=== PATIENT | female | born 1985 | race Caucasian/White ===

== ENCOUNTER 2019-05-02 19:21 | Emergency (ER) | payer SELFPAY ==
[2019-05-02] MEDS: ONDANSETRON HCL/PF 4 MG/ 2ML VIAL IVP ONE (19:33)
[2019-05-02] MEDS: 0.9 % SODIUM CHLORIDE 1,000 ML IV ONE ×3 (19:37→21:42)
[2019-05-02 19:46] LABS: BASOPHILS % 0.5 % (0.0-1.5); NEUTROPHILS # 11.7 # k/uL (1.4-7.7)
[2019-05-02 19:52] LABS: eGFR (Non-African) > 60
--- NOTE | 2019-05-02 20:51 | Diagnostic Imaging Report ---
PATIENT MR#: [id number] PATIENT PATIENT NAME: BANDAR CHILDS DATE OF : 1985 REFERRING PHYSICIAN: Alcon Velarde EXAM DATE: 05/02/2019 ACCESSION NUMBER: [id number] EXAM DESCRIPTION: ABD SERIES PA CHEST Examination: Obstruction series History: Abdominal discomfort Findings: 3 views obtained of the chest and abdomen. No abnormal dilation of the large or small bowel . Air and stool throughout the large bowel. No suspicious calcification projecting over the renal fossa or the lower pelvic region. Osseous structures are appropriate for age. No focal consolidation or blunting of the costophrenic ma rgins. Impression: No ileus or obstruction. No acute cardiopulmonary process. No suspicious calcifications by plain film sensitivity. Read by: Dr. Dexter Smith Transcribed by: Transcribed Date: Electronically signed by: Dr. Dexter Smith Date signed: 05/02/2019 8:50:47 PM
[2019-05-02] MEDS: LORazepam 2 MG/ML VIAL IV ONE (21:00)
[2019-05-02] MEDS: ONDANSETRON HCL 4 MG TAB.RAPDIS PO ONE (21:40)
[2019-05-02] MEDS: LORazepam 2 MG/ML VIAL ONE (21:42)
[2019-05-02] MEDS: 0.9 % SODIUM CHLORIDE 1,000 ML IV SCH ×2 (21:43→21:44)
[2019-05-02] MEDS: ONDANSETRON HCL/PF 4 MG/ 2ML VIAL IM ONE (21:45)
--- NOTE | 2019-05-02 22:06 | ED Physician Documentation ---
General Adult - HISTORIAN Historian: patient - HPI Stated Complaint: nausea and vomiting Chief Complaint: Nausea,Vomiting,Diarrhea Additional Information: 2 day history of nausea and vomiting, has been dry heaving some. No diarrhea noted. Patient has had some fever, ? mild chills. No one else at home is sick. Having some lower abd pain, cramping, sharp in nature. Patient denies that she is (has had BTL) Onset: days ago (2 days) Timing: still present Severity: moderate Modifying Factors: none Context: no precipitating factors noted Location: diffuse Further Comments: no - ROS CONST: fever, chills CVS/RESP: none GI/: abdominal pain (suprapubic area), problems urinating (always has some problems, seems to be at baseline), vomiting, nausea. denies: diarrhea, black stools MS/SKIN/LYMPH: none NEURO/PSYCH: denies: headache, fainting, dizziness - PAST HX Past History: none Other History: other (anxiety) Surgeries/Procedures: (x2), other (TKR right) Immunizations: denies: influenza Allergies/Adverse Reactions: Allergies Allergy/AdvReac Type Severity Reaction Status Date / Time codeine Allergy Mild Verified 05/02/19 20:06 Home Medications: Ambulatory Orders Medication Instructions Recorded Ciprofloxacin HCl [Cipro] 250 mg PO BID #10 tablet 05/02/19 Ondansetron HCl Rapdis [Zofran Odt] 4 mg PO Q8 #20 tab 05/02/19 - SOCIAL HX Smoking History: less than 1 pack/day Alcohol Use: none Drug Use: none - FAMILY HX Family History: Yes - REVIEWED ASSESSMENTS Nursing Assessment Reviewed: Yes Vitals Reviewed: Yes ED Results Lab/Radiology - Lab Results Lab Results: Lab Results 05/02/19 05/02/19 19:38 19:37 WBC 13.80 K/ul H K/ul (4.00-12.00) RBC 4.31 M/ul M/ul (3.90-5.20) Hgb 13.3 g/dL g/dL (11.5-16.0) Hct 40.0 % % (34.5-46.5) MCV 93.0 fl fl (80.0-100.0) MCH 30.8 pg pg (28.0-34.0) MCHC 33.2 g/dL g/dL (30.0-36.0) RDW 10.4 % L % (11.3-14.3) Plt Count 234 K/mm3 K/mm3 (130-400) Neut % (Auto) 84.2 % H % (39.0-79.0) Lymph % (Auto) 9.4 % L % (16.0-50.0) Steele % (Auto) 4.9 % % (0.0-11.0) Eos % (Auto) 1.0 % % (0.0-6.8) Baso % (Auto) 0.5 % % (0.0-1.5) Neut # (Auto) 11.7 # k/uL H # k/uL (1.4-7.7) Lymph # (Auto) 1.3 # k/uL # k/uL (0.6-4.0) Steele # (Auto) 0.7 # k/uL # k/uL (0.0-0.9) Eos # (Auto) 0.1 # k/uL # k/uL (0.0-0.6) Baso # (Auto) 0.1 # k/uL # k/uL (0.0-0.5) Sodium 136 mmol/L L mmol/L (137-145) Potassium 3.8 mmol/L mmol/L (3.5-5.1) Chloride 100 mmol/L mmol/L (98-107) Carbon Dioxide 24 mmol/L mmol/L (22-30) Anion Gap 15.8 BUN 12 mg/dL mg/dL (7-17) Creatinine 0.93 mg/dL mg/dL (0.52-1.04) Est GFR ( Amer) > 60 (60 - ) Est GFR (Non-Af Amer) > 60 (60 - ) Glucose 158 mg/dL H mg/dL (74-106) Calcium 9.5 mg/dL mg/dL (8.4-10.2) Total Bilirubin 0.7 mg/dL mg/dL (0.2-1.3) AST 27 U/L U/L (15-46) ALT 13 U/L U/L (0-35) Alkaline Phosphatase 69 U/L U/L (38-126) Total Protein 8.2 g/dL g/dL (6.3-8.2) Albumin 4.4 g/dL g/dL (3.5-5.0) - Radiology Radiology Impressions: Abd series: Air and stool throughout colon, no stool retention noted. Normal exam - Orders Orders: ED Orders Category Date Time Status ACUTE ABDOMINAL SERIES [ABD SERIES PA CHEST] [RAD] Stat Exams 05/02/19 Compl eted CBC/PLATELET/DIFF Stat Lab 05/02/19 19:37 Completed CMP Stat Lab 05/02/19 19:38 Completed URINALYSIS Stat Lab 05/02/19 19:33 Ordered 0.9 % Sodium Chloride [Normal Saline] 1,000 ml Med 05/02/19 19:31 Discontinued IV .STK-MED 0.9 % Sodium Chloride [Normal Saline] 1,000 ml Med 05/02/19 19:50 Discontinued IV .STK-MED 0.9 % Sodium Chloride [Normal Saline] 1,000 ml Med 05/02/19 19:45 Discontinued IV Q10H 0.9 % Sodium Chloride [Normal Saline] 1,000 ml Med 05/02/19 21:10 Active IV Q1H 0.9 % Sodium Chloride [Normal Saline] 1,000 ml Med 05/02/19 21:15 Ordered IV Q1H LORazepam [Ativan] Med 05/02/19 21:00 Discontinued 0.5 mg IV NOW ONE LORazepam [Ativan] Med 05/02/19 19:35 Discontinued 2 mg .ROUTE .STK-MED ONE Ondansetron HCl Rapdis [Zofran Odt] Med 05/02/19 21:05 Discontinued 4 mg PO NOW ONE Ondansetron HCl/Pf [Zofran] Med 05/02/19 21:04 Discontinued 4 mg IM NOW ONE Ondansetron HCl/Pf [Zofran] Med 05/02/19 19:33 Discontinued 4 mg IVP NOW ONE General Adult Physical Exam - PHYSICAL EXAM GENERAL APPEARANCE: moderate distress NECK: normal inspection, thyroid normal, supple. No: meningismus RESPIRATORY: no resp distress, chest non-tender, breath sounds normal. No: wheezes, rales, rhonchi CVS: reg rate & rhythm, heart sounds normal, no murmur ABDOMEN: soft, no organomegaly, normal bowel sounds, no abdominal bruit, no distension, tenderness (minimal supraubic tenderness) BACK: normal inspection, no CVA tenderness SKIN: warm/dry, normal color EXTREMITIES: non-tender. No: edema NEURO: oriented X3, CN's nml as tested, motor nml, sensation nml, mood/affect nml, cognition normal Discharge Clincal Impression: Nausea & vomiting Qualifiers: Vomiting type: unspecified Vomiting Intractability: non-intractable Qualified Code(s): R11.2 - Nausea with vomiting, unspecified UTI (urinary tract infection) Qualifiers: Urinary tract infection type: acute cystitis Hematuria presence: with hematuria Qualified Code(s): N30.01 - Acute cystitis with hematuria Prescriptions: Ciprofloxacin HCl [Cipro] 250 mg PO BID #10 tablet Ondansetron HCl Rapdis [Zofran Odt] 4 mg PO Q8 #20 tab Referrals: Primary Doctor,No [Primary Care Provider] - 2 Days Additional Instructions: Try to drink a lot of fluids to stay hydrated. Take Zofran as needed for nausea. Take Ciprofloxin 250mg tab twice a day for 3 days. If you continue to have some difficulties return to the ED. You may take acetaminophen (Tylenol) as needed for fever or aches. Do not take any aspirin or aspirin products. Condition: Stable Disposition: 01 HOME, SELF-CARE Decision to Admit: NO Date of Decison to Admit: 05/02/19 Decision Time: 22:24
[2019-05-02] MEDS: CIPROFLOXACIN IN 5 % DEXTROSE 200 ML IV ONE (22:32)
[2019-05-02 23:16] VITALS: BP 101/55
[2019-05-03 09:58] LABS: OCCULT BLOOD,URINE 1+ (NEGATIVE); UROBILINOGEN URINE 0.2 Eu (0.2-1.0)
== END 2019-05-02 23:00 | disposition home or self-care (01) ==
LOC: ED 19:21
DX: N39.0 Urinary tract infection, site not specified (principal); R11.2 Nausea with vomiting, unspecified
CPT/HCPCS: 74022; 80053; 81002; 85025; 87086; 87186; 96374; 96375; 99284; J0744; J2060; J2405; A9270; J7030; S1016